=== PATIENT | male | born 1985 | race Asian ===

== ENCOUNTER 2017-08-25 08:54 | Inpatient (IN) | payer OTHER ==
[2017-08-25 10:38] LABS: ADD MAN DIFF? NO
[2017-08-25 10:40] LABS: WHITE BLOOD COUNT 9.7 10^3/ul (4.8-10.8)
[2017-08-25 10:40] LABS: BASOPHILS % 0.2 % (0.0-2.0); HEMATOCRIT 42.5 % (42.0-52.0); HEMOGLOBIN 13.9 g/dl (14.0-18.0); LYMPHOCYTES # 1.3 10^3/ul (0.8-2.9); LYMPHOCYTES % 13.3 % (15.0-51.0); MEAN CORPUSCULAR HEMOGLOBIN 28.3 pg (29.0-33.0); MEAN CORPUSCULAR HGB CONC 32.7 g/dl (32.0-37.0); MEAN CORPUSCULAR VOLUME 86.6 fl (82.0-101.0); MEAN PLATELET VOLUME 10.1 fl (7.4-10.4); MONOCYTE # 0.8 10^3/ul (0.3-0.9); MONOCYTES % 8.4 % (0.0-11.0); NEUTROPHIL # 7.6 10^3/ul (1.6-7.5); NEUTROPHILS % 77.8 % (39.0-77.0); PLATELET COUNT 235 10^3/UL (140-415); POSITIVE DIFF @See below; RED BLOOD COUNT 4.91 10^6/ul (4.70-6.10); RED CELL DISTRIBUTION WIDTH 13.5 % (11.5-14.5)
[2017-08-25 10:57] LABS: LACTIC ACID 1.8 mmol/L (0.5-2.0)
[2017-08-25 11:07] LABS: INR 0.93; PROTIME 12.5 Sec (11.9-14.9)
[2017-08-25] MEDS: SODIUM CHLORIDE 0.9% 1L BAG IV* (11:08)
[2017-08-25] MEDS: ACETAMINOPHEN 325 MG TAB PO ×3 (11:08→23:19)
[2017-08-25 11:10] LABS: ALANINE AMINOTRANSFERASE 218 IU/L (13-69); ALBUMIN 4.7 g/dl (3.3-4.9); ALBUMIN/GLOBULIN RATIO 1.09; ALKALINE PHOSPHATASE 437 IU/L (42-121); ANION GAP 19 (8-16); ASPARTATE AMINO TRANSFERASE 124 IU/L (15-46); BILIRUBIN,INDIRECT 0.6 mg/dl (0-1.1); BILIRUBIN,TOTAL 0.6 mg/dl (0.2-1.3); BLOOD UREA NITROGEN 16 mg/dl (7-20); CALCIUM 10.7 mg/dl (8.4-10.2); CARBON DIOXIDE 29 mmol/L (21-31); CHLORIDE 100 mmol/L (97-110); CREATININE 1.05 mg/dl (0.61-1.24); GLUCOSE 114 mg/dl (70-220); POTASSIUM 4.2 mmol/L (3.5-5.1); SODIUM 144 mmol/L (135-144)
[2017-08-25 11:26] LABS: TROPONIN-I < 0.012 ng/ml (0.00-0.12)
[2017-08-25] MEDS: CEFEPIME 2GM/50 ML (PMX) 50 ML IVPB (11:43)
[2017-08-25] MEDS ORDERED: ONDANSETRON 4 MG INJ IV ×2 (12:00→12:30)
[2017-08-25] MEDS ORDERED: DOCUSATE SODIUM 100 MG CAP PO (12:00)
[2017-08-25 12:24] LABS: ADD UMIC YES; UR ASCORBIC ACID NEGATIVE (NEGATIVE); UR BILIRUBIN (Dip) NEGATIVE (NEGATIVE); UR BLOOD (Dip) 2+ mg/dL (NEGATIVE); UR CLARITY CLOUDY (CLEAR); UR COLOR AMBER (YELLOW); UR GLUCOSE (Dip) NEGATIVE (NEGATIVE); UR KETONES (Dip) NEGATIVE (NEGATIVE); UR LEUKOCYTE ESTERASE (Dip) 3+ Leu/ul (NEGATIVE); UR NITRITE (Dip) NEGATIVE (NEGATIVE); UR RBC 0 /HPF (0-5); UR SPECIFIC GRAVITY (Dip) 1.009 (1.003-1.030); UR TOTAL PROTEIN (Dip) 2+ mg/dl (NEGATIVE); UR UROBILINOGEN (Dip) NEGATIVE (NEGATIVE); UR WBC 0 /HPF (0-5)
[2017-08-25] MEDS ORDERED: ACETAMINOPHEN 325 MG TAB PO (12:30)
[2017-08-25] MEDS: VANCOMYCIN 1 GM (PMX) 250 ML IVPB (12:55)
[2017-08-25 13:08] LABS: AMPHETAMINE/METHAMPHETAMINE Negative (NEGATIVE); BARBITURATES Negative (NEGATIVE); BENZODIAZEPINES Negative (NEGATIVE); CANNABINOIDS Negative (NEGATIVE); COCAINE Negative (NEGATIVE); OPIATES Negative (NEGATIVE)
[2017-08-25 13:42] LABS: LACTIC ACID 0.8 mmol/L (0.5-2.0)
[2017-08-25] MEDS: SOD CHLORIDE 0.9% 1,000 ML IV ×2 (13:50→17:16)
[2017-08-25] MEDS: DOCUSATE SODIUM 100 MG CAP PO ×2 (13:50→21:00)
[2017-08-25] MEDS: CEFTRIAXONE 1 GM/50 ML (PMX) 50 ML IVPB (13:56)
[2017-08-25 19:14] LABS: LACTIC ACID 2.2 mmol/L (0.5-2.0)
[2017-08-25] MEDS: SOD CHLORIDE 0.9% 250 ML IV (20:48)
[2017-08-26] MEDS: HYDROCODONE/APAP (5/325) TAB PO ×3 (01:50→20:51)
[2017-08-26 01:57] LABS: LACTIC ACID 1.7 mmol/L (0.5-2.0)
[2017-08-26] MEDS: SOD CHLORIDE 0.9% 1,000 ML IV ×3 (04:04→20:50)
[2017-08-26 05:51] LABS: ADD MAN DIFF? NO
[2017-08-26 05:53] LABS: BASOPHILS % 0.4 % (0.0-2.0); EOSINOPHILS % 0.1 % (0.0-7.0); HEMOGLOBIN 11.4 g/dl (14.0-18.0); LYMPHOCYTES # 1.4 10^3/ul (0.8-2.9); MEAN CORPUSCULAR HEMOGLOBIN 28.6 pg (29.0-33.0); MEAN CORPUSCULAR HGB CONC 32.6 g/dl (32.0-37.0); MEAN CORPUSCULAR VOLUME 87.9 fl (82.0-101.0); MEAN PLATELET VOLUME 9.4 fl (7.4-10.4); MONOCYTE # 1.2 10^3/ul (0.3-0.9); MONOCYTES % 15.2 % (0.0-11.0); NEUTROPHIL # 5.3 10^3/ul (1.6-7.5); NEUTROPHILS % 66.2 % (39.0-77.0); PLATELET COUNT 194 10^3/UL (140-415); RED BLOOD COUNT 3.98 10^6/ul (4.70-6.10); RED CELL DISTRIBUTION WIDTH 13.6 % (11.5-14.5)
[2017-08-26 06:46] LABS: ALANINE AMINOTRANSFERASE 142 IU/L (13-69); ALBUMIN 3.6 g/dl (3.3-4.9); ALBUMIN/GLOBULIN RATIO 1.12; ALKALINE PHOSPHATASE 349 IU/L (42-121); ANION GAP 15 (8-16); ASPARTATE AMINO TRANSFERASE 80 IU/L (15-46); BILIRUBIN,INDIRECT 0.2 mg/dl (0-1.1); BILIRUBIN,TOTAL 0.2 mg/dl (0.2-1.3); BLOOD UREA NITROGEN 19 mg/dl (7-20); CALCIUM 9.4 mg/dl (8.4-10.2); CARBON DIOXIDE 27 mmol/L (21-31); CHLORIDE 105 mmol/L (97-110); CREATININE 1.11 mg/dl (0.61-1.24); GLUCOSE 133 mg/dl (70-220); MAGNESIUM 1.8 mg/dl (1.7-2.5); PHOSPHORUS 4.6 mg/dl (2.5-4.9); POTASSIUM 4.1 mmol/L (3.5-5.1); SODIUM 143 mmol/L (135-144); TOTAL PROTEIN 6.8 g/dl (6.1-8.1)
[2017-08-26] MEDS: DOCUSATE SODIUM 100 MG CAP PO ×2 (08:09→20:50)
[2017-08-26] MEDS: ENOXAPARIN 40 MG/0.4 ML SYG SC (08:10)
[2017-08-26] MEDS: ACETAMINOPHEN 325 MG TAB PO ×3 (08:59→23:16)
[2017-08-26 10:30] LABS: HEMOGLOBIN A1C 5.4 % (0-5.9)
[2017-08-26 12:20] LABS: HAAIG REFLEX REFLEX FILED
[2017-08-26] MEDS: CEFTRIAXONE 1 GM/50 ML (PMX) 50 ML IVPB (12:50)
[2017-08-26 13:13] LABS: HEPATITIS B SURFACE ANTIGEN NEGATIVE (NEGATIVE)
[2017-08-26 13:30] LABS: HEPATITIS B SURFACE ANTIBODY NEGATIVE (NEGATIVE)
[2017-08-26 13:31] LABS: HEPATITIS B CORE ANTIBODY REACTIVE (NEGATIVE)
[2017-08-26 14:45] LABS: HEPATITIS C VIRAL ANTIBODY NEGATIVE (NEGATIVE)
[2017-08-26] MEDS: ZOLPIDEM 5 MG TAB PO (23:16)
[2017-08-27] MEDS: SOD CHLORIDE 0.9% 1,000 ML IV ×3 (04:49→18:31)
[2017-08-27] MEDS: ACETAMINOPHEN 325 MG TAB PO (07:53)
[2017-08-27] MEDS: DOCUSATE SODIUM 100 MG CAP PO ×2 (09:08→20:30)
[2017-08-27] MEDS: ENOXAPARIN 40 MG/0.4 ML SYG SC (09:11)
[2017-08-27] MEDS: CEFTRIAXONE 1 GM/50 ML (PMX) 50 ML IVPB (11:32)
[2017-08-27] MEDS: HYDROCODONE/APAP (5/325) TAB PO ×2 (11:36→20:30)
[2017-08-27] MEDS: PIPER-TAZO 3.375 GM IV (PMX) 100 ML IVPB ×2 (15:10→21:04)
[2017-08-27] MEDS: SOD CHLORIDE 0.9% 100 ML (18:39)
[2017-08-27] MEDS: IOHEXOL 300MG/ML 30 ML BTL (18:39)
[2017-08-28] MEDS: SOD CHLORIDE 0.9% 1,000 ML IV ×2 (03:53→11:53)
[2017-08-28 05:34] LABS: ADD MAN DIFF? NO
[2017-08-28] MEDS: PIPER-TAZO 3.375 GM IV (PMX) 100 ML IVPB ×2 (05:36→14:03)
[2017-08-28 05:39] LABS: BASOPHILS % 0.5 % (0.0-2.0); EOSINOPHILS # 0.2 10^3/ul (0.0-0.5); EOSINOPHILS % 2.3 % (0.0-7.0); HEMATOCRIT 37.7 % (42.0-52.0); HEMOGLOBIN 12.2 g/dl (14.0-18.0); LYMPHOCYTES # 1.8 10^3/ul (0.8-2.9); LYMPHOCYTES % 27.4 % (15.0-51.0); MEAN CORPUSCULAR HGB CONC 32.4 g/dl (32.0-37.0); MEAN CORPUSCULAR VOLUME 86.5 fl (82.0-101.0); MEAN PLATELET VOLUME 9.6 fl (7.4-10.4); MONOCYTE # 0.5 10^3/ul (0.3-0.9); MONOCYTES % 7.4 % (0.0-11.0); NEUTROPHIL # 4.1 10^3/ul (1.6-7.5); NEUTROPHILS % 61.5 % (39.0-77.0); PLATELET COUNT 269 10^3/UL (140-415); RED BLOOD COUNT 4.36 10^6/ul (4.70-6.10); RED CELL DISTRIBUTION WIDTH 13.5 % (11.5-14.5)
[2017-08-28 05:39] LABS: WHITE BLOOD COUNT 6.6 10^3/ul (4.8-10.8)
[2017-08-28 06:00] LABS: ALANINE AMINOTRANSFERASE 211 IU/L (13-69); ALBUMIN 3.9 g/dl (3.3-4.9); ALBUMIN/GLOBULIN RATIO 1.08; ALKALINE PHOSPHATASE 586 IU/L (42-121); ANION GAP 18 (8-16); ASPARTATE AMINO TRANSFERASE 134 IU/L (15-46); BILIRUBIN,INDIRECT 0.1 mg/dl (0-1.1); BILIRUBIN,TOTAL 0.1 mg/dl (0.2-1.3); BLOOD UREA NITROGEN 18 mg/dl (7-20); CARBON DIOXIDE 28 mmol/L (21-31); CHLORIDE 104 mmol/L (97-110); CREATININE 1.06 mg/dl (0.61-1.24); GLUCOSE 105 mg/dl (70-220); POTASSIUM 5.1 mmol/L (3.5-5.1); SODIUM 145 mmol/L (135-144); TOTAL PROTEIN 7.5 g/dl (6.1-8.1)
[2017-08-28] MEDS: DOCUSATE SODIUM 100 MG CAP PO (09:45)
[2017-08-28] MEDS: HYDROCODONE/APAP (5/325) TAB PO (09:46)
[2017-08-28] MEDS: ENOXAPARIN 40 MG/0.4 ML SYG SC (09:57)
[2017-08-28 16:40] LABS: HEPATITIS B DELTA ANTIBODY NEGATIVE
[2017-08-29 14:51] LABS: ANA SCREEN NEGATIVE (NEGATIVE); MITOCHONDRIAL TB NEGATIVE (NEGATIVE); SMOOTH MUSCLE AB SCREEN NEGATIVE (NEGATIVE)
== END 2017-08-28 20:00 | disposition home or self-care (01) | DRG 872 ==
LOC: E/R 08:54 → MS1 12:06
DX: A41.9 Sepsis, unspecified organism (principal); G82.20 Paraplegia, unspecified; N13.30 Unspecified hydronephrosis; N39.0 Urinary tract infection, site not specified; B19.10 Unspecified viral hepatitis B without hepatic coma; N31.9 Neuromuscular dysfunction of bladder, unspecified; Z96.0 Presence of urogenital implants; N20.0 Calculus of kidney; D17.79 Benign lipomatous neoplasm of other sites
CPT/HCPCS: 36415; 71045; 74177; 74181; 80053; 80307; 81001; 83036; 83605; 83735; 84100; 84484; 85025; 85610; 85730; 86038; 86255; 86692; 86704; 86706; 86709; 86803; 87040; 87086; 87340; 93005; 96374; 96375; 99291-25

== ENCOUNTER 2017-12-24 09:53 | Emergency (ER) | payer OTHER | END 2017-12-24 10:56 | disposition home or self-care (01) | LOC: FTE 09:53 | DX: L97.519 Non-pressure chronic ulcer of other part of right foot with unspecified severity (principal) | CPT/HCPCS: 99283; Z7502 ==